=== PATIENT | female | born 1970 | race African-American/Black ===

== ENCOUNTER 2020-09-09 15:47 | Inpatient (IN) | payer OTHER ==
[2020-09-09] MEDS: MELATONIN 5 MG TABLETS PO SCH (11:59)
[2020-09-09 17:48] VITALS: BMI 34.8
[2020-09-09] MEDS ORDERED: hydrOXYzine PAMOATE 25 MG CAPSULE (FP) PO PRN (21:24)
[2020-09-09] MEDS ORDERED: METHOCARBAMOL 500 MG TABLET PO PRN (21:24)
[2020-09-09] MEDS ORDERED: MENTHOL/PHENOL 1 EACH UD MM PRN (21:24)
[2020-09-09] MEDS ORDERED: ACETAMINOPHEN 325 MG TABLET (FP) PO PRN ×2 (21:24)
[2020-09-09] MEDS ORDERED: IBUPROFEN 400 MG TABLET (FP) PO PRN (21:24)
[2020-09-09] MEDS ORDERED: MAGNESIUM HYDROX 2400MG/30ML ORAL SUSPENSION 30 ML CUP PO PRN (21:24)
[2020-09-09] MEDS ORDERED: MAGNESIUM CITRATE 300 ML BOTTLE PO PRN (21:24)
[2020-09-09] MEDS ORDERED: MAG HYDROX/AL HYDROX/SIMETH 30 ML UNIT-DOSE CUP PO PRN (21:24)
[2020-09-09] MEDS ORDERED: NICOTINE POLACRILEX 2 MG GUM BUC PRN (21:24)
[2020-09-09] MEDS ORDERED: BISMUTH SUBSALICYLATE 524 MG/30 ML UD PO PRN (21:24)
[2020-09-09] MEDS: THIAMINE HCL 100 MG TABLET (FP) PO SCH (23:59)
[2020-09-10] MEDS: METHADONE HCL 40 MG DISPERSABLE TABLET PO SCH (09:36)
[2020-09-10] MEDS ORDERED: chlordiazePOXIDE HCL 25 MG CAPSULE PO PRN (09:54)
[2020-09-10] MEDS: PRENATAL VITAMINS W/ FOLIC ACID TABLET (FP) PO SCH (10:17)
[2020-09-10] MEDS: chlordiazePOXIDE HCL 25 MG CAPSULE PO SCH ×3 (10:17→22:57)
[2020-09-10 10:36] LABS: ALBUMIN 3.3 g/dl (3.4-5.0); BLOOD UREA NITROGEN 8.8 mg/dL (7-18)
[2020-09-10 10:40] LABS: BILIRUBIN,TOTAL 0.6 mg/dL (0.2-1)
[2020-09-10 10:41] LABS: TOT PROT 7.7 g/dl (6.4-8.2)
[2020-09-10 10:44] LABS: HEMATOCRIT 46.1 % (32.4-45.2); MCH 27.2 pg (25.7-33.7); MCHC 32.7 g/dl (32.0-36.0); MEAN CELL VOLUME 83.2 fl (80-96); MEAN PLT VOLUME 7.8 fl (7.5-11.1); PLATELET COUNT 222 K/MM3 (134-434); RBC 5.54 M/mm3 (3.60-5.2); RDW 16.3 % (11.6-15.6); WHITE BLOOD COUNT 7.1 K/mm3 (4.0-10.0)
[2020-09-10] MEDS: SERTRALINE HCL 50 MG TABLET (FP) PO SCH (14:42)
[2020-09-10] MEDS: THIAMINE HCL 100 MG TABLET (FP) PO SCH (22:57)
[2020-09-10] MEDS: MELATONIN 5 MG TABLETS PO SCH (22:57)
[2020-09-10] MEDS: OLANZapine 7.5 MG TABLET PO SCH (22:57)
[2020-09-10] MEDS: SUVOREXANT 10 MG TABLET PO PRN (22:59)
[2020-09-11] MEDS: METHADONE HCL 40 MG DISPERSABLE TABLET PO SCH (06:36)
[2020-09-11] MEDS: chlordiazePOXIDE HCL 25 MG CAPSULE PO SCH ×4 (06:36→22:12)
[2020-09-11] MEDS: SERTRALINE HCL 50 MG TABLET (FP) PO SCH (10:55)
[2020-09-11] MEDS: PRENATAL VITAMINS W/ FOLIC ACID TABLET (FP) PO SCH (10:55)
[2020-09-11] MEDS: THIAMINE HCL 100 MG TABLET (FP) PO SCH (22:11)
[2020-09-11] MEDS: MELATONIN 5 MG TABLETS PO SCH (22:12)
[2020-09-11] MEDS: OLANZapine 7.5 MG TABLET PO SCH (22:12)
[2020-09-11] MEDS: SUVOREXANT 10 MG TABLET PO PRN (22:13)
[2020-09-12] MEDS: chlordiazePOXIDE HCL 25 MG CAPSULE PO SCH ×4 (05:54→22:33)
[2020-09-12] MEDS: METHADONE HCL 40 MG DISPERSABLE TABLET PO SCH (05:54)
[2020-09-12] MEDS: PRENATAL VITAMINS W/ FOLIC ACID TABLET (FP) PO SCH (11:08)
[2020-09-12] MEDS: SERTRALINE HCL 50 MG TABLET (FP) PO SCH (11:08)
[2020-09-12 16:08] LABS: SARS-CoV-2 NAA Not Detected (Not Detected)
[2020-09-12] MEDS: THIAMINE HCL 100 MG TABLET (FP) PO SCH (22:08)
[2020-09-12] MEDS: OLANZapine 7.5 MG TABLET PO SCH (22:08)
[2020-09-12] MEDS: MELATONIN 5 MG TABLETS PO SCH (22:09)
[2020-09-12] MEDS: SUVOREXANT 10 MG TABLET PO PRN (22:10)
[2020-09-13] MEDS ORDERED: chlordiazePOXIDE HCL 10 MG CAPSULE PO PRN
[2020-09-13] MEDS: METHADONE HCL 40 MG DISPERSABLE TABLET PO SCH (05:41)
[2020-09-13] MEDS: chlordiazePOXIDE HCL 10 MG CAPSULE PO SCH ×4 (05:41→22:02)
[2020-09-13] MEDS: SERTRALINE HCL 50 MG TABLET (FP) PO SCH (10:35)
[2020-09-13] MEDS: PRENATAL VITAMINS W/ FOLIC ACID TABLET (FP) PO SCH (10:35)
[2020-09-13] MEDS: SUVOREXANT 10 MG TABLET PO PRN (22:01)
[2020-09-13] MEDS: THIAMINE HCL 100 MG TABLET (FP) PO SCH (22:01)
[2020-09-13] MEDS: MELATONIN 5 MG TABLETS PO SCH (22:02)
[2020-09-13] MEDS: OLANZapine 7.5 MG TABLET PO SCH (22:02)
[2020-09-14] MEDS: METHADONE HCL 40 MG DISPERSABLE TABLET PO SCH (05:47)
[2020-09-14] MEDS: chlordiazePOXIDE HCL 10 MG CAPSULE PO SCH ×2 (05:48→18:12)
[2020-09-14] MEDS: PRENATAL VITAMINS W/ FOLIC ACID TABLET (FP) PO SCH (10:32)
[2020-09-14] MEDS: SERTRALINE HCL 50 MG TABLET (FP) PO SCH (10:32)
[2020-09-14] MEDS: THIAMINE HCL 100 MG TABLET (FP) PO SCH (22:19)
[2020-09-14] MEDS: OLANZapine 7.5 MG TABLET PO SCH (22:19)
[2020-09-14] MEDS: MELATONIN 5 MG TABLETS PO SCH (22:19)
[2020-09-15] MEDS ORDERED: chlordiazePOXIDE HCL 10 MG CAPSULE PO ONE (05:00)
[2020-09-15] MEDS: METHADONE HCL 40 MG DISPERSABLE TABLET PO SCH (05:42)
[2020-09-15 10:06] VITALS: BP 151/73; PULSE 113; TEMP 97.8
[2020-09-15] MEDS: PRENATAL VITAMINS W/ FOLIC ACID TABLET (FP) PO SCH (10:12)
[2020-09-15] MEDS: SERTRALINE HCL 50 MG TABLET (FP) PO SCH (10:12)
== END 2020-09-15 10:45 | disposition home or self-care (01) | DRG 773 ==
LOC: YASAS 15:47 → Y6N 09-10 07:42
PROVIDERS: ADMIT Allergy & Immunology; ATTEND Allergy & Immunology
PROC: HZ2ZZZZ Detoxification Services for Substance Abuse Treatment (ICD-10-PCS; principal; 2020-09-10)
DX: F10.230 Alcohol dependence with withdrawal, uncomplicated (principal); F11.20 Opioid dependence, uncomplicated; F14.20 Cocaine dependence, uncomplicated; F17.210 Nicotine dependence, cigarettes, uncomplicated; F19.282 Other psychoactive substance dependence with psychoactive substance-induced sleep disorder; F19.24 Other psychoactive substance dependence with psychoactive substance-induced mood disorder; F33.1 Major depressive disorder, recurrent, moderate
CPT/HCPCS: 36415; 80053; 81025; 85027; 86780; C9803; U0003; U0005